=== PATIENT | male | born 1985 | race Caucasian/White ===

== ENCOUNTER 2024-06-10 20:01 | Emergency (ER) | payer OTHER, BC ==
[~2024-06-10] VITALS: Ht 177.8 cm; Wt 68.0 kg
[2024-06-10 20:26] VITALS: BP 129/70; TEMP 98.7; O2SAT 98
[2024-06-10] MEDS ORDERED: IBUP-1953 PO (21:39)
[2024-06-10] MEDS ORDERED: CYCL15CA23 PO (21:39)
== END 2024-06-10 21:47 | disposition home or self-care (01) ==
LOC: ER 20:06
DX: M54.2 Cervicalgia (principal); Z60.2 Problems related to living alone; V43.52XA Car driver injured in collision with other type car in traffic accident, initial encounter; Y93.89 Activity, other specified; Y92.488 Other paved roadways as the place of occurrence of the external cause; Y99.8 Other external cause status
CPT/HCPCS: 70450-TC; 72125-TC